=== PATIENT | male | born 1985 | race American Indian/Alaskan Native ===

== ENCOUNTER 2016-05-25 15:28 | Emergency (ER) | payer OTHER ==
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
[2016-05-25] MEDS ORDERED: TORADOL IM ONE (18:32)
[2016-05-25 18:53] VITALS: BP 124/68
== END 2016-05-25 18:51 | disposition home or self-care (01) ==
LOC: ED 15:28
DX: M25.511 Pain in right shoulder (principal); M62.830 Muscle spasm of back; V89.2XXA Person injured in unspecified motor-vehicle accident, traffic, initial encounter; Y92.413 State road as the place of occurrence of the external cause; Y93.89 Activity, other specified; Y99.8 Other external cause status
CPT/HCPCS: 96372; 99282; J1885

== ENCOUNTER 2017-04-07 10:08 | Emergency (ER) | payer SELFPAY ==
[2017-04-07 11:27] VITALS: BP 120/89
== END 2017-04-07 13:52 | disposition left against medical advice (07) ==
LOC: ED 10:08
DX: Z53.21 Procedure and treatment not carried out due to patient leaving prior to being seen by health care provider (principal)

== ENCOUNTER 2017-04-08 20:15 | Emergency (ER) | payer SELFPAY | END 2017-04-08 20:16 | disposition left against medical advice (07) | LOC: ED 20:15 | DX: Z53.21 Procedure and treatment not carried out due to patient leaving prior to being seen by health care provider (principal) ==

== ENCOUNTER 2017-05-30 20:32 | Emergency (ER) | payer SELFPAY ==
[2017-05-30 21:10] VITALS: BP 123/84
[2017-05-30 21:47] LABS: Basophils # (Auto) 0.1 K/mm3 (0.0-0.1); Basophils % (Auto) 0.7 % (0.0-1.8); Eosinophils # (Auto) 0.1 K/mm3 (0.0-0.4); Eosinophils % (Auto) 0.7 % (0.0-4.3); Hematocrit 46.5 % (35.5-45.6); Hemoglobin 14.9 gm/dl (11.8-15.2); Lymphocytes # (Auto) 2.8 K/mm3 (1.2-5.4); Lymphocytes % (Auto) 22.9 % (13.4-35.0); Mean Corpuscular HGB Conc 32 % (32-34); Mean Corpuscular Volume 72 fl (84-94); Monocytes % (Auto) 8.6 % (0.0-7.3); Platelet Count 271 K/mm3 (140-440); Red Blood Count 6.49 M/mm3 (3.65-5.03)
[2017-05-30 21:48] LABS: Mean Corpuscular Hemoglobin 23 pg (28-32)
== END 2017-05-30 22:50 | disposition left against medical advice (07) ==
LOC: ED 20:32
DX: R05 Cough (principal); Z53.21 Procedure and treatment not carried out due to patient leaving prior to being seen by health care provider
CPT/HCPCS: 85025